=== PATIENT | male | born 2000 | race Caucasian/White ===

== ENCOUNTER 2021-04-11 15:13 | Emergency (ER) | payer OTHER ==
[~2021-04-11] VITALS: Ht 182.8 cm; Wt 99.8 kg
[~2021-04-11 15:13] MED LIST: ALLEGRA-D 24 H1 EACH PO; PROAIR HFA8.5 GM INH
[2021-04-11 17:11] VITALS: BP 116/71
== END 2021-04-11 17:53 | disposition home or self-care (01) ==
LOC: ED 15:13
DX: U07.1 COVID-19 (principal); Z79.899 Other long term (current) drug therapy

== ENCOUNTER → 2022-07-29 | Outpatient (CLI) | payer OTHER | END | disposition home or self-care (01) | LOC: LAB 14:22 | PROVIDERS: ATTEND Pediatrics | DX: R05.9 Cough, unspecified (principal) ==